=== PATIENT | female | born 1945 | race Caucasian/White ===

== ENCOUNTER → 2018-10-04 12:42 | Outpatient (CLI) | payer OTHER, SELFPAY ==
--- NOTE | 2018-10-04 | DI.MRI.S_ITS ---
PROCEDURE: MR KNEE RT WO CON INDICATIONS: Unspecified internal derangement of right knee TECHNIQUE: Noncontrast sagittal PD fast spin echo and T2 fast spin echo with fat saturation, sagittal 3-D FLASH with fat saturation; coronal T1 spin echo and PD fast spin echo with fat saturation, and axial PD fast spin echo with fat saturation through the knee. COMPARISON: None. FINDINGS: Image quality: Excellent. Menisci: Lateral meniscus appears grossly intact. Medial meniscal tear involving the body with diminutive macerated appearance of the remaining meniscal substance. Cruciate ligaments: The anterior and posterior cruciate ligaments appear intact. Periligamentous ganglion cyst incidentally noted. Medial structures: There is medial bowing of the medial collateral ligament, with mild internal signal changes and no complete rupture. There is adjacent soft tissue edema. The appearance could reflect reactive changes to medial compartment pathology, versus low-grade sprain of the MCL. Pes anserinus tendons appear grossly unremarkable. Semimembranosus tendon appears intact. Lateral structures: The lateral collateral ligament demonstrates thickening and intrasubstance signal change in keeping with low grade sprain, statistically chronic, although technically age indeterminate. The biceps femoris tendon appears intact. Popliteus tendon grossly unremarkable. Iliotibial band appears intact. Anterior structures: Prepatellar and superficial infrapatellar subcutaneous edema/fluid. The quadriceps and patellar tendons appear intact. Patellar alignment is normal. No femoral trochlear dysplasia or ventral trochlear prominence. No edema in the infrapatellar fat pad. Bones and cartilage: No focal marrow contusion or discrete low signal fracture line. Within the medial compartment, mild diffuse partial thickness loss with femoral and tibial articular cartilage. Within the lateral compartment, articular cartilage appears grossly intact Within the patellofemoral compartment, no focal articular cartilage defect Joint space: 4 cm Ludwig's cyst measuring in the cephalocaudad dimension. No pathologic joint effusion. No specific evidence of intra-articular loose body. Small ganglion cyst seen at the proximal attachment of the medial gastrocnemius IMPRESSION: Medial meniscal macerated tear involving the body. Mild degenerative joint disease. Ludwig's cyst. Dictated by: Mike Pete M.D. on 10/04/2018 at 14:36 Approved by: Mike Pete M.D. on 10/04/2018 at 15:09
== END ==
PROVIDERS: PCP Internal Medicine; Visit Provider Orthopaedic Surgery
DX: S83.241A Other tear of medial meniscus, current injury, right knee, initial encounter (principal); M71.21 Synovial cyst of popliteal space [Baker], right knee
CPT/HCPCS: 73721